=== PATIENT | female | born 1990 | race Two or more races ===

== ENCOUNTER 2018-02-17 10:57 | Emergency (ER) | payer SELFPAY ==
[~2018-02-17] VITALS: Ht 172.7 cm; Wt 52.6 kg
[2018-02-17 10:57] VITALS: BP 121/84
== END 2018-02-17 11:32 | disposition home or self-care (01) ==
LOC: ER 11:00
DX: M77.9 Enthesopathy, unspecified (principal); M25.562 Pain in left knee; F17.200 Nicotine dependence, unspecified, uncomplicated
CPT/HCPCS: A4606; Z7502; Z7610

== ENCOUNTER 2022-06-03 09:07 | Emergency (ER) | payer OTHER ==
[~2022-06-03] VITALS: Ht 172.7 cm; Wt 68.0 kg
--- NOTE | 2022-06-03 10:10 | NUR ---
The patient is presented to ER pelvic area pain 7/10 (burning sensation) x 1 week, -dysuria. In room air and denies SOB. Respiration regular and unlabored. Will continue to monitor the patient.
[2022-06-03 10:53] LABS: BILIRUBIN,URINE NEGATIVE (NEGATIVE); COLOR,URINE YELLOW (YELLOW); LEUKOCYTE ESTERASE ,URINE NEGATIVE (NEGATIVE); NITRITE, URINE NEGATIVE (NEGATIVE); PROTEIN,URINE NEGATIVE (NEGATIVE); UGLUCOSE NEGATIVE (NEGATIVE); UROBILINOGEN,URINE 0.2 EU/dL (0.2)
--- NOTE | 2022-06-03 11:14 | NUR ---
Patient discharged to home in stable condition. Written and verbal after care instructions given. Patient verbalizes understanding of instruction.
[2022-06-03 11:15] VITALS: BP 135/75
[2022-06-03 11:34] LABS: BACTERIA,URINE None seen /HPF (None Seen); RBC,URINE NONE SEEN /HPF (0-2); SQUAMOUS EPITHELIAL CELL,UR Rare /HPF (None Seen); WBC,URINE 0-2 /HPF (0-3)
== END 2022-06-03 11:15 | disposition home or self-care (01) ==
LOC: ER 09:13
DX: R10.2 Pelvic and perineal pain (principal); F17.200 Nicotine dependence, unspecified, uncomplicated; Z87.42 Personal history of other diseases of the female genital tract
CPT/HCPCS: 81001; 84703-TC